=== PATIENT | male | born 1995 | race Asian ===

== ENCOUNTER 2018-07-12 15:23 | Emergency (ER) | payer SELFPAY ==
[2018-07-12 16:38] VITALS: BP 129/76
--- NOTE | 2018-07-12 16:52 | ED ---
Head Injury - HPI Summary HPI Summary: Patient is a 22-year-old male presenting to the ED after a fall while skiing. Patient states he fell headfirst into the snow, with abrasions to his right cheek. He denies LOC, but states he was "down for a while." Friend at bedside stated he was down for approximately 1 minute. During this time, the patient states he did not fully blackout and does recall the incident, however was just very "foggy." He denies any upper or lower extremity pain. He denies any nausea vomiting. He denies any memory loss, confusion. He does endorse a 2/10 headache and bilateral neck pain. No pain specifically over the spine. No mid or lower back pain. Denies any urinary symptoms. Patient states he feels otherwise at his baseline. - History Of Current Complaint Chief Complaint: EDHeadInjury Stated Complaint: "FALL FACIAL/NECK PAIN PER PT" Time Seen by Provider: 07/12/18 15:38 Hx Obtained From: Patient Mechanism Of Injury: Direct Blow Onset/Duration: Started Hours Ago Onset of Pain: Minutes, Hours Severity Currently: Moderate Severity Initially: Moderate Pain Intensity: 2 Pain Scale Used: 0-10 Numeric Location of Head Injury: Occipital Character: Throbbing Aggravating Factor(s): Movement Alleviating Factor(s): Rest Associated Signs And Symptoms: Negative - Risk Factors SDH Risk Factor: Negative - Allergies/Home Medications Allergies/Adverse Reactions: Allergies Allergy/AdvReac Type Severity Reaction Status Date / Time No Known Allergies Allergy Verified 07/12/18 15:29 PMH/Surg Hx/FS Hx/Imm Hx Previously Healthy: Yes - Immunization History Hx Pertussis Vaccination: No Immunizations Up to Date: Yes Infectious Disease History: No Infectious Disease History: Denies: Traveled Outside the [place] in Last 30 Days - Social History Occupation: Student Lives: Dormitory/Roommates Alcohol Use: None Hx Substance Use: No Substance Use Type: Reports: None Hx Tobacco Use: No Smoking Status (MU): Never Smoked Tobacco Review of Systems Constitutional: Negative Negative: Fever, Chills, Fatigue, Skin Diaphoresis Negative: Blurred Vision, Diplopia Negative: Sore Throat Negative: Chest Pain Negative: Shortness Of Breath, Cough Negative: Arthralgia, Myalgia Positive: Headache - 2/10. Negative: Weakness, Paresthesia, Numbness Psychological: Normal All Other Systems Reviewed And Are Negative: Yes Physical Exam Triage Information Reviewed: Yes Vital Signs On Initial Exam: Initial Vitals Temp Pulse Resp BP Pulse Ox 97.3 F 58 16 118/84 100 07/12/18 15:27 07/12/18 15:27 07/12/18 15:27 07/12/18 15:27 07/12/18 15:27 Vital Signs Reviewed: Yes Appearance: Positive: Well-Appearing, Well-Nourished Skin: Positive: Skin Color Reflects Adequate Perfusion, Other - abrasion to the R cheek Head/Face: Positive: Normal Head/Face Inspection Eyes: Positive: EOMI, MAHIN, Conjunctiva Clear Neck: Positive: Supple, No Lymphadenopathy Respiratory/Lung Sounds: Positive: Clear to Auscultation, Breath Sounds Present Cardiovascular: Positive: RRR, Pulses are Symmetrical in both Upper and Lower Extremities Musculoskeletal: Positive: Normal, Strength/ROM Intact Neurological: Positive: Sensory/Motor Intact, Alert, Oriented to Person Place, Time, CN Intact II-III, Reflexes Intact, Normal Gait, Speech Normal Psychiatric: Positive: Normal, Affect/Mood Appropriate Diagnostics - Vital Signs Vital Signs Temp Pulse Resp BP Pulse Ox 07/12/18 16:38 98.3 F 63 16 129/76 98 07/12/18 15:27 97.3 F 58 16 118/84 100 - Laboratory Lab Statement: Any lab studies that have been ordered have been reviewed, and results considered in the medical decision making process. Head Injury Course/Dx Course Of Treatment: Patient arrives to the ED with a chief complaint of right facial abrasions and bilateral neck pain. He does endorse a 2/10 headache which is more to the posterior side. He denies any LOC, but states he may have been confused for a while. Friend at bedside stated he was down for approximately 1 minute. He denies the use blood thinners. He is otherwise healthy. I discussed treatment options with the patient. On physical examination, there is no nystagmus noted, full neuro exam intact. Bilateral neck pain with palpation, however patient is able to flex, extend and rotate about the neck. Emulating well with no gait disturbance. Reflexes intact bilaterally. Discussed obtaining a CT which the patient declines this time. I have encouraged Tylenol and is OK with discharge at this time. He understands to return for any headaches, confusion, blurry vision or double vision. - Diagnoses Provider Diagnoses: Fall, Abrasion Discharge - Sign-Out/Discharge Documenting (check all that apply): Patient Departure Patient Received Moderate/Deep Sedation with Procedure: No - Discharge Plan Condition: Stable Disposition: HOME Patient Education Materials: Concussion (ED) Referrals: No Primary Care Phys,NOPCP [Primary Care Provider] - Additional Instructions: Ibuprofen 600mg three times daily Tylenol 650mg three times daily Use these intermittently As discussed, if you develop any worsening or changing symptoms are worsening headache, return to the ED immediately Keep antibiotic ointment over the cheek area 2-3 days You may have worsening symptoms tomorrow Rest as much as possible If you have headaches, do not read, right, watch TV or look at your phone until symptoms have resolved - Billing Disposition and Condition Condition: STABLE Disposition: Home
== END 2018-07-12 16:38 | disposition home or self-care (01) ==
LOC: ED 15:23
DX: S00.81XA Abrasion of other part of head, initial encounter (principal); M54.2 Cervicalgia; V00.321A Fall from snow-skis, initial encounter; Y93.23 Activity, snow (alpine) (downhill) skiing, snowboarding, sledding, tobogganing and snow tubing; Y92.9 Unspecified place or not applicable; R51 Headache
CPT/HCPCS: 99281